=== PATIENT | female | born 1970 | race Hispanic/Latino ===

== ENCOUNTER 2018-12-25 11:58 | Day surgery (SDC) | payer OTHER, SELFPAY ==
[2018-12-13 12:44] VITALS: BMI 42.2
[2018-12-25] VITALS (18 sets, daily range): BP systolic 142–222; BP diastolic 78–103; PULSE 75–83; RESP 10–16; TEMP 36.2–36.6; O2SAT 93–100; BMI 41.5
[2018-12-25] MEDS: LACTATED RINGERS 1,000 ML 42 ML IV ×2 (14:11→17:28)
--- NOTE | 2018-12-25 16:07 | PM.PREOP ---
Pre-operative Note Interval Note History & Physical reviewed/Exam performed by Physician: Yes Changes to H&P: No
[2018-12-25] MEDS: CLINDAMYCIN 600 MG/50 ML PIGGYBACK 50 MG IV (16:41)
--- NOTE | 2018-12-25 17:20 | SUR.OPER ---
Lateral on padded OR bed with summers bag positioner, head on pillow, gel axillary roll in place, bottom leg bent with gel pad under knee to foot, upper leg straight and supported with pillows. Operative arm secured in shoulder positioning suspension device. non-operative arm secured on padded arm board. Safety belt at hip, tape over blanket securing lower legs.
[2018-12-25] MEDS: BUPIVACAINE 0.5% W/ EPI (PF) VIAL 30 ML INJ (17:30)
[2018-12-25] MEDS: SODIUM CHLORIDE IRRIG SOLUTION 3,000 ML, EPINEPHrine 1 MG IRR (17:30)
[2018-12-25] MEDS: fentaNYL 100 MCG/2 ML INJ 50 MCG IV ×2 (17:53→18:05)
--- NOTE | 2018-12-25 17:56 | P.OP_ITS ---
Operative Date/Time/Diagnoses Date of procedure: 12/25/18 Time of procedure: 17:30 Pre-op diagnosis: Left shoulder impingement syndrome Post-op diagnosis: other (Left shoulder partial-thickness rotator cuff tear) Procedure & Clinicians Procedure: 1. Left shoulder arthroscopy with major debridement 2. Suprascapular nerve block of left shoulder performed by surgeon for postoperative pain control. Same procedure as scheduled: Yes Indications: The patient is a 48-year-old woman who has had work related left shoulder pain that has not responded to nonoperative measures. After discussion the risks benefits and alternative she has agreed to a shoulder arthroscopy. Risks discussed included but were not limited to: Failure to improve, sti ffness, infection, nerve damage, deep venous thrombosis, pulmonary embolism, stroke, myocardial infarction, permanent paralysis and . Surgeon: Tobias Jara Click Yes if Unassisted: Yes Anesthesia Type: General, Peripheral nerve block and Local Operative Notes Findings: 1. Normal glenohumeral cartilage 2. Normal glenohumeral labrum 3. Normal glenohumeral ligaments 4. Normal subscapularis 5. Biceps tendon with minimal fraying of the synovial sheath with intact tendon itself. 6. Supraspinatus notable for low grade articular surface partial-thickness tear. This was shaved and proved to be less than 1 mm into the depth of the cuff. 7. Normal infraspinatus 8. Normal axillary pouch 9. Minimal fraying of the bursal surface of the cuff 10. Type 2 acromion with impingement lesion 11. Acromioclavicular joint not visualized due to lack of preoperative symptoms 12. Exam under anesthesia notable for full range of motion the shoulder with no evidence for pathologic laxity. Closure Type: primary Specimen(s): none sent Prosthetic devices, grafts, tissues, transplants, or devices: None Estimated Blood Loss (mL): 5 Blood products transfused: none Procedure in detail: The patient was seen in the preoperative area where she confirmed that the left shoulder was the operative site and this was marked with my initials. She received preoperative antibiotics and was taken to the operating room placed on the operating room table in the supine position where she underwent a general anesthetic. Her shoulder was examined under anesthesia with the findings given above. She was then repositioned in the right lateral decubitus position with an axillary roll and padding for all pressure points. The left arm was prepared from the fingertips to the base neck with ChloraPrep in the usual fashion and drape through sterile drapes. The arm was placed in 10 lb of balanced skin suspension. Subcutaneous landmarks were outlined on the skin with a marking pen. 10 mL of 0.5% Marcaine was used to perform a suprascapular nerve block in the standard fashion for postoperative pain control. A posterior portal was created and the arthroscope inserted in the glenohumeral joint. An anterior portal was used to insert the shaver which was used to willis ride the minimal fraying of the synovial sheath of the biceps and the fraying of the undersurface of the rotator cuff. The arthroscope was then withdrawn and placed in the subacromial bursa through the posterior portal and a lateral portal created for instrumentation. A bursectomy was performed for visualization. The superior surface of the cuff was inspected and found to be largely intact except for minimal fraying. The type 2 acromion was converted to a type 1 acromion using the cutting block technique due to the impingement lesion evident. At the conclusion of this all arthroscopic equipment was removed. The wounds closed with 4 0 Monocryl and Steri-Strips. An additional 20 mL of 0.5% Marcaine was injected 10 of it into the subacromial space and ten into the subcutaneous tissues for postoperative pain control. Dressings of sterile 4x4s, an ABD and Tegaderm were then applied and the patient's arm was placed in a sling. She was subsequently transferred to the recovery room in good condition having tolerated the procedure well. Complications: none Condition: stable Disposition: PACU Plan for aftercare: The patient will be maintained on a standard arthroscopic subacromial decompression protocol with range of motion and use of her arm as tolerated. She will be discharged today and follow up in the office in 2 weeks.
[2018-12-25] MEDS: hydrOXYzine pamoate 25 MG CAPSULE PO (18:12)
[2018-12-25] MEDS: HYDROMORPHONE 2 MG INJ 0.5 MG IV ×2 (18:14→18:30)
[2018-12-25] MEDS: OXYCODONE IR 5 MG TABLET PO (18:22)
[2018-12-25] MEDS: ONDANSETRON 4 MG/2 ML INJ IV (18:40)
[2018-12-25] MEDS: LABETALOL 20 MG/4 ML SYRINGE 10 MG IV (18:46)
--- NOTE | 2018-12-25 22:35 | SUR.PHASEI ---
Post op Note: Late entry--weaving machine operator at bedside until 182. Patient complained of pain level 8/10 shortly after arrival to PACU. Medicated with narcotics per orders. Blood pressure elevated secondary to pain. Dr. Gazra notified regarding elevated BP. Medicated per orders with positive results. Pain level improved from 8/10 to 5-6/10 at time of transfer to [facility]. Daughter at bedside in PACU until transfer to [facility] after flight crew ordnanceman left. Up to bathroom to void and dress for discharge. Daughter stated that they are waiting for their ride to come from [place]. Patient sat up at bedside and tolerated po snacks without nausea. VSS prior to discharge. BP stable. Dressing to left shoulder CDI. Ice pack on surgical site. Neuro checks WNL. W/C to vehicle. Arun Bermeo MSN, RN
== END 2018-12-25 20:35 | disposition home or self-care (01) ==
PROVIDERS: Family Provider Family Medicine; PCP Family Medicine; Visit Provider Orthopaedic Surgery
PROC: (CPT 29805; principal; 2018-12-25 14:45)
DX: M75.112 Incomplete rotator cuff tear or rupture of left shoulder, not specified as traumatic (principal); S46.912A Strain of unspecified muscle, fascia and tendon at shoulder and upper arm level, left arm, initial encounter; M75.42 Impingement syndrome of left shoulder; X50.9XXA Other and unspecified overexertion or strenuous movements or postures, initial encounter; Y92.63 Factory as the place of occurrence of the external cause; M77.12 Lateral epicondylitis, left elbow; I10 Essential (primary) hypertension; E78.5 Hyperlipidemia, unspecified; E11.9 Type 2 diabetes mellitus without complications; F32.9 Major depressive disorder, single episode, unspecified; F17.210 Nicotine dependence, cigarettes, uncomplicated; Z79.4 Long term (current) use of insulin
CPT/HCPCS: 29823; J0171; J0330; J1100; J1170; J2405; J2704; J3010

== ENCOUNTER 2020-12-01 15:00 | Emergency (ER) | payer BC, OTHER, MEDICAID, SELFPAY ==
[2020-12-01 15:02] VITALS: BP 199/88; PULSE 84; RESP 18; TEMP 36.8; O2SAT 97; BMI 43.5
[2020-12-01 15:12] VITALS: PULSE 82; O2SAT 99
[2020-12-01 15:13] VITALS: BP 199/88; PULSE 82; O2SAT 96
[2020-12-01 15:30] VITALS: PULSE 77; O2SAT 98
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
[2020-12-01 16:00] VITALS: PULSE 74; O2SAT 98
== END 2020-12-01 16:22 | disposition home or self-care (01) ==
PROVIDERS: Emergency Provider Emergency Medicine; Family Provider Family Medicine; PCP Family Medicine
DX: S16.1XXA Strain of muscle, fascia and tendon at neck level, initial encounter (principal); M25.512 Pain in left shoulder; V89.2XXA Person injured in unspecified motor-vehicle accident, traffic, initial encounter
CPT/HCPCS: 81025; 99282

== ENCOUNTER 2021-09-07 16:01 | Emergency (ER) | payer BC, OTHER, MEDICAID, SELFPAY ==
[2021-09-07 16:17] VITALS: BP 197/86; PULSE 82; RESP 15; TEMP 36.3; O2SAT 99; BMI 42.5
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
--- NOTE | 2021-09-07 17:15 | ED.UPPEXIN ---
HPI - Extremity Injury (Upper) <Luann Germain, [facility] - Last Filed: 09/07/21 20:15> General Chief Complaint: Extremity Injury, Upper Stated Complaint: drill fell through hand and went through Time Seen by Provider: 09/07/21 16:55 Source: patient and family Mode of arrival: Ambulatory History of Present Illness HPI narrative: 51-year-old presents to the emergency department with a left hand wound after a drill fell down onto her left hand while while it was running. She has a small puncture wound to the dorsum of her left hand, states that she cleaned with alcohol and iodine 1st and use a Q-tip to clean it up on the inside. Patient states that it was painful, discharged in [place] was resting. Patient states needs a tetanus vaccination. Patient denies any mobility deficit, his able to use her left hand without significant pain. She is right-hand dominant. Related Data Home Medications Medication Instructions Recorded Confirmed Lantus U-100 Insulin 12/13/18 Novolog Flexpen U-100 Insulin 12/13/18 diclofenac potassium 50 mg tablet 50 mg PO TID PRN 12/13/18 12/25/18 gabapentin 600 mg tablet 600 mg PO TID 12/13/18 12/25/18 lisinopril 20 mg tablet 20 mg PO DAILY 12/13/18 12/25/18 lovastatin 40 mg tablet 40 mg PO QPM 12/13/18 12/25/18 meloxicam 15 mg tablet 15 mg PO DAILY 12/13/18 12/25/18 metformin 1,000 mg tablet 1,000 mg PO TID 12/13/18 12/13/18 sertraline 50 mg tablet 50 mg PO DAILY 12/13/18 12/13/18 venlafaxine 75 mg capsule,extended 75 mg PO DAILY 12/13/18 12/13/18 release 24 hr (Effexor XR) Previous Rx's Medication Instructions Recorded hydroxyzine pamoate 25 mg capsule 25 mg PO Q4HR PRN #40 cap 12/25/18 oxycodone 5 mg tablet 5 mg PO Q3HR PRN #40 tab 12/25/18 doxycycline hyclate 100 mg capsule 100 mg PO BID 5 Days #10 cap 09/07/21 hydrocodone 5 mg-acetaminophen 325 1 tab PO BID PRN #7 tab 09/07/21 mg tablet Allergies Allergy/AdvReac Type Severity Reaction Status Date / Time Penicillins [PENICILLINS] Allergy Unknown Verified 09/07/21 16:17 Review of Systems <CAROLINE Odell - Last Filed: 09/07/21 20:15> Review of Systems Narrative: General: denies fever, chills, malaise, sweats, fatigue Head/Neck: denies headache, neck pain, dizziness Eyes: denies visual changes, eye pain Cardio: denies chest pain, palpitations, edema Respiratory: denies dyspnea, cough, orthopnea GI: denies abdominal pain, nausea, vomiting, or diarrhea : denies dysuria, hematuria, urinary retention, frequency or incontinence MSK: denies joint pain, muscle weakness Skin: denies rash, itching, left hand wound Neuro: denies numbness, tingling Patient History <CAROLINE Odell - Last Filed: 09/07/21 20:15> Medical History Chronic back pain Depression DM2 (diabetes mellitus, type 2) Headache HLD (hyperlipidemia) HTN (hypertension) Rupture of distal biceps tendon (~02/2013) Surgical History History of arthroscopic surgery of elbow History of History of incision and drainage (03/10/17) Hx of tubal ligation Social History household members: children Smoking Status: Current every day smoker alcohol intake: current Smoking Status: Current every day smoker tobacco type: cigarettes Substance Use Type: does not use Exam <CAROLINE Odell - Last Filed: 09/07/21 20:15> Narrative Exam Narrative: Independently reviewed vitals signs and nursing notes. General: Cooperative, comfortable, in no acute distress, well developed and well groomed Head/Neck: Normal visual inspection and supple, atraumatic, no JVD or lymphadenopathy. Eyes: Pupils equal round and reactive, EOMI, conjunctiva normal, no scleral icterus or injections Nose: External nose normal, nares patent, no rhinorrhea, without purulent drainage Mouth/Throat: uvula midline, moist mucus membranes Cardio: Regular rate and rhythm, no peripheral edema, warm extremities Respiratory: Normal respiratory effort, able to speak in complete sentences without audible wheezing, stridor, or rales. No retractions. GI: Abdomen soft, nontender to palpation x4 quadrants, nondistended, no masses or exquisite tenderness with exam, no flank tenderness MSK: Moves all extremities, neurovascularly intact Skin: Normal capillary refill, no rash, left hand with a small laceration to the dorsum of her hand between her 4th and 5th metacarpals. Full range of motion intact, isolated at each joint of her 4th and 5th fingers. Cap refill less than 2 seconds, no bleeding, no foreign debris, without suspected tendon injury. No surrounding erythema or purulence. Neuro: Normal speech and cognition, normal gait, A&O x3, tone normal, moves all extremities Psych: Mental status is grossly normal, speech is clear, congruent mood, normal affect Initial Vital Signs Initial Vital Signs: Vital Signs Temperature 97.4 F L 09/07/21 16:17 Pulse Rate 82 09/07/21 16:17 Respiratory Rate 15 09/07/21 16:17 Blood Pressure 197/86 H 09/07/21 16:17 Pulse Oximetry 99 09/07/21 16:17 <Sky Oneil DO - Last Filed: 09/08/21 08:12> Initial Vital Signs Initial Vital Signs: Vital Signs Temperature 97.4 F L 09/07/21 16:17 Pulse Rate 82 09/07/21 16:17 Respiratory Rate 15 09/07/21 16:17 Blood Pressure 197/86 H 09/07/21 16:17 Pulse Oximetry 99 09/07/21 16:17 Procedures <CAROLINE Odell - Last Filed: 09/07/21 20:15> Laceration Repair Laceration 1: Time of procedure: 17:36 Site: hand Side (If applicable): right Size (cm): 0.5 Description: irregular Depth: simple, single layer Local Anesthetic: lidocaine 1% and with bicarb Amount of anesthesia used (mL): 2 Pre-repair: wound explored, irrigated extensively and deep structures intact Skin layer closed with: nylon Size (cm): 5-0 Number of sutures: 1 Technique: simple, interrupted Course <CAROLINE Odell - Last Filed: 09/07/21 20:15> Orders Ordered: Discontinued Medications Diphtheria/Tetanus/Acell Pertussis (Tet,Diph,Pertuss(Acell),Vac/Pf 0.5 Ml Syringe) 0.5 ml IM .ONCE ONE Stop: 09/07/21 16:59 Last Admin: 09/07/21 17:39 Dose: 0.5 ml Documented by: GENA Lidocaine/Prilocaine (Lidocaine/Prilocaine 5 Gm) 5 gm TOP NOW ONE Stop: 09/07/21 17:16 Last Admin: 09/07/21 17:45 Dose: 5 gm Documented by: GENA Lidocaine/Sodium Bicarbonate (Lido 1%/Sod Bicarb 8.4% (10ml) 10 Ml Syringe) 10 ml INJ NOW ONE Stop: 09/07/21 17:16 Last Admin: 09/07/21 17:38 Dose: 10 ml Documented by: GENA Oxycodone/Acetaminophen (Oxycodone/Acetaminophen 5/325 Tablet) 1 tab PO NOW ONE Stop: 09/07/21 17:22 Last Admin: 09/07/21 17:40 Dose: 1 tab Documented by: GENA Vital Signs Vital signs: Vital Signs - 8 hr 09/07/21 16:17 09/07/21 18:21 Temperature 97.4 F L Pulse Rate 82 72 Respiratory Rate 15 17 Blood Pressure 197/86 H 174/80 H Pulse Oximetry 99 99 <Sky Oneil DO - Last Filed: 09/08/21 08:12> Orders Ordered: Discontinued Medications Diphtheria/Tetanus/Acell Pertussis (Tet,Diph,Pertuss(Acell),Vac/Pf 0.5 Ml Syringe) 0.5 ml IM .ONCE ONE Stop: 09/07/21 16:59 Last Admin: 09/07/21 17:39 Dose: 0.5 ml Documented by: GENA Lidocaine/Prilocaine (Lidocaine/Prilocaine 5 Gm) 5 gm TOP NOW ONE Stop: 09/07/21 17:16 Last Admin: 09/07/21 17:45 Dose: 5 gm Documented by: GENA Lidocaine/Sodium Bicarbonate (Lido 1%/Sod Bicarb 8.4% (10ml) 10 Ml Syringe) 10 ml INJ NOW ONE Stop: 09/07/21 17:16 Last Admin: 09/07/21 17:38 Dose: 10 ml Documented by: GENA Oxycodone/Acetaminophen (Oxycodone/Acetaminophen 5/325 Tablet) 1 tab PO NOW ONE Stop: 09/07/21 17:22 Last Admin: 09/07/21 17:40 Dose: 1 tab Documented by: GENA Vital Signs Vital signs: Vital Signs - 8 hr 09/07/21 16:17 09/07/21 18:21 Temperature 97.4 F L Pulse Rate 82 72 Respiratory Rate 15 17 Blood Pressure 197/86 H 174/80 H Pulse Oximetry 99 99 [facility] - Extremity Injury (Upper) <Luann Germain [facility] - Last Filed: 09/07/21 20:15> Imaging Data Extremity x-ray #1: Radiologist's Impression: PROCEDURE:? XR HAND LT MIN 3V ? INDICATIONS:? drill may have drilled into top of hand ? TECHNIQUE:? 3 views of the hand acquired.? ? COMPARISON:? None. ? FINDINGS:? ? Bones:? No acute fractures or dislocations.? Mild chronic posttraumatic deformity of the 5th metacarpal.? Carpal bones are normally aligned.? No suspicious bony lesions.? ? Soft tissues:? No suspicious soft tissue calcifications.? Arterial vascular calcifications are present.? Mild soft tissue edema is noted.? No radiopaque foreign body. ? ? IMPRESSION:? No acute osseous abnormality.? No radiopaque foreign body.? If clinical suspicion and/or symptoms persist, additional imaging with repeat plain films, or advanced imaging (e.g. CT, MRI) may be helpful for further assessment. ? ? Dictated by: Lg Almonte M.D. on 09/07/2021 at 16:48 ? ? Approved by: Lg Almonte M.D. on 09/07/2021 at 16:50 ? [facility] Narrative Medical decision making narrative: 51-year-old female Sammarinese-speaking only who presents to the emergency department with her daughter who is translating for her. Patient states that today a drill fell down with a drill running and got the dorsum of her left hand between her 4th and 5th metacarpals. X-ray was negative for foreign body, osseous abnormality. Wound was thoroughly cleaned and irrigated with normal saline. Patient states she cleaned it with alcohol and iodine at home. 1 5.0 ethilon suture was placed and allows for drainage on either side. No evidence of uncontrolled hemorrhage, infection, open fracture/joint, and deep injury, or damage to tendons, nerves, or blood vessels. Tdap updated. Patient understands to have this removed in 10 days and to keep it covered with a Band-Aid. Because she is a diabetic and prone to infections, she was given doxycycline for infection prophylaxis. Patient is appropriate and amenable to discharge home. Vital signs are stable on repeat examination is unremarkable. Patient has been informed of results. Patient has been given strict return to ER precautions for any new or worsening symptoms. Patient understands to follow up closely with outpatient providers as instructed. Patient understands plan and agrees to discharge home. All questions and concerns answered at this time. Discharge Plan Departure Patient Disposition: Home Clinical Impression: Laceration of hand without complication, excluding fingers Qualifiers: Encounter type: initial encounter Laterality: left Qualified Code(s): S61.412A - Laceration without foreign body of left hand, initial encounter Instructions: DI for Laceration Repair -- Simple Activity Restrictions/Additional Instructions: *You have been diagnosed with a hand laceration. Please have your sutures removed in 10 days. Please follow-up with your primary care provider for this or return to the emergency department. We are always happy to see you. Please keep this covered with a Band-Aid at minimum, you may apply antibiotic ointment if you desire. Please take the antibiotics for infection prophylaxis. You may wash your hands with soap and water like normal, just keep it clean. Thank you for trusting us with your care. I hope you feel better soon. *What to do: *Please continue to take your regular medications as directed. [x ] New medication prescriptions sent to your pharmacy: [ [facility]] [ ] New medication written as a paper prescription [ ] No new medications given *Please follow up with your primary care provider in 2-3 days, call for an appointment. Let them know you were seen in the Emergency Department and that we ask that you be seen in follow up. We will electronically transmit a record of today's note if your PCP is in our system *If you do not have a primary care provider please contact the [facility] Resource line at [phone]. They will ask some questions about your medical history and help get you set up with a doctor in the community. *Return to Emergency Department if you should have any new, worsening or concerning symptoms, such as [fever greater than 101F, chills, worsening pain, persistent vomiting or other bothersome symptoms] Prescriptions: New doxycycline hyclate 100 mg capsule 100 mg PO BID 5 Days Qty: 10 0RF hydrocodone-acetaminophen 5-325 mg tablet 1 tab PO BID PRN (Reason: pain) Qty: 7 0RF No Action venlafaxine [Effexor XR] 75 mg Capsule,Extended Release 24hr 75 mg PO DAILY 0RF gabapentin 600 mg Tablet 600 mg PO TID 0RF meloxicam 15 mg Tablet 15 mg PO DAILY 0RF lisinopril 20 mg Tablet 20 mg PO DAILY 0RF lovastatin 40 mg Tablet 40 mg PO QPM 0RF metformin 1,000 mg Tablet 1,000 mg PO TID 0RF diclofenac potassium 50 mg Tablet 50 mg PO TID PRN (Reason: Pain) 0RF sertraline 50 mg Tablet 50 mg PO DAILY 0RF Lantus U-100 Insulin 0RF Novolog Flexpen U-100 Insulin 0RF oxycodone 5 mg Tablet 5 mg PO Q3HR PRN (Reason: Pain, Moderate (4-6)) Qty: 40 0RF hydroxyzine pamoate 25 mg Capsule 25 mg PO Q4HR PRN (Reason: Spasms) Qty: 40 0RF Referrals: Christina Mackenzie MD [Primary Care Provider] - <Sky Oneil DO - Last Filed: 09/08/21 08:12> Cosign ED Attending Cosignature Attestation: I was immediately available in the department for consultation. This documentation has been reviewed and I agree with assessment and plan. Supervised by Sky Oneil DO
[2021-09-07] MEDS: LIDO 1%/SOD BICARB 8.4% (10ML) 10 ML SYRINGE INJ (17:38)
[2021-09-07] MEDS: TET,DIPH,PERTUSS(ACELL),VAC/PF 0.5 ML SYRINGE IM (17:39)
[2021-09-07] MEDS: OXYCODONE/ACETAMINOPHEN 5/325 TABLET 1 TAB PO (17:40)
[2021-09-07] MEDS: LIDOCAINE/PRILOCAINE 5 GM TOP (17:45)
--- NOTE | 2021-09-07 17:55 | PC.NURSE ---
Provider at the bedside, suture kit and numbing meds applied.
[2021-09-07 18:21] VITALS: BP 174/80; PULSE 72; RESP 17; O2SAT 99
== END 2021-09-07 18:22 | disposition home or self-care (01) ==
PROVIDERS: Emergency Provider Nurse Practitioner Critical Care Medicine; Family Provider Family Medicine; PCP Family Medicine
DX: S61.412A Laceration without foreign body of left hand, initial encounter (principal); F17.210 Nicotine dependence, cigarettes, uncomplicated; W29.8XXA Contact with other powered hand tools and household machinery, initial encounter; Z23 Encounter for immunization
CPT/HCPCS: 12001; 73130; 90471; 99283; 99284; 90715

== ENCOUNTER → 2022-10-12 09:09 | Outpatient (CLI) | payer OTHER, MEDICAID, SELFPAY ==
[2022-10-12 10:55] LABS: Estimated Glomerular Filt Rate > 60 mL/min (>60)
== END ==
PROVIDERS: Radiology Body Imaging; Family Provider Family Medicine; PCP Family Medicine; Referring Provider Urology; Visit Provider Urology
DX: E11.9 Type 2 diabetes mellitus without complications (principal)
CPT/HCPCS: 36415; 82565

== ENCOUNTER → 2022-10-13 06:56 | Outpatient (CLI) | payer OTHER, MEDICAID, SELFPAY ==
--- NOTE | 2022-10-13 06:57 | DI.CT.S_ITS ---
PROCEDURE: CT IVP A/P W/WO INDICATIONS: Other microscopic hematuria TECHNIQUE: 5 mm thick noncontrast images acquired from the diaphragm to the symphysis pubis. After the administration of intravenous contrast, 5 mm thick images acquired from the diaphragm to the symphysis pubis after a 10-minute delay using a split bolus techinque. 2 mm thick coronal and sagittal reformats were then performed of the kidneys and ureters. For radiation dose reduction, the following was used: automated exposure control, adjustment of mA and/or kV according to patient size. COMPARISON: [facility], CT, CT ABDOMEN ADRENAL PROTOCOL, 09/15/2019, 12:25. [facility], CT, CT CHEST ABDOMEN PELVIS WITH CONTRAST, 04/22/2022, 13:24. FINDINGS: Lung bases: No pleural effusion. Urinary system: Possible punctate nonobstructing stones in both kidneys versus renal hilar vascular calcifications. No large renal stone visualized. No ureteral or bladder stone visualized. No definite evidence of a solid renal mass. The opacified portions of the renal collecting systems and ureters are unremarkable without a definite filling defect demonstrated. Most of the left ureter is not opacified and not well evaluated. Other solid organs: Liver is normal in size and enhancement. Gallbladder is unremarkable . Biliary system is non dilated. Pancreas enhances normally. Spleen is normal in size and enhancement. Redemonstrated right adrenal nodule previously characterized as an adenoma. Peritoneum and bowel: Bowel loops demonstrate normal wall thickness and caliber. No free fluid or air. Nodes and vessels: No retroperitoneal or mesenteric adenopathy by size criteria. Atherosclerosis without abdominal aortic aneurysm. Pelvis: No pathologic free pelvic fluid. No adenopathy. Bones: Multilevel degenerative change of the visualized spine. IMPRESSION: 1. Possible punctate nonobstructing stones in both kidneys versus renal hilar vascular calcifications. No large renal stone visualized. 2. No definite evidence of a solid renal mass or upper tract urothelial neoplasm. Most of the left ureter is not opacified and is not well evaluated. Dictated by: Lg Fung M.D. on 10/13/2022 at 8:52 Approved by: Lg Fung M.D. on 10/13/2022 at 9:10
== END ==
PROVIDERS: Family Provider Family Medicine; PCP Family Medicine; Referring Provider Urology; Visit Provider Urology
DX: R31.29 Other microscopic hematuria (principal); D35.01 Benign neoplasm of right adrenal gland
CPT/HCPCS: 74178